=== PATIENT | female | born 1995 | race African-American/Black ===

== ENCOUNTER 2024-06-18 21:03 | Emergency (ER) | payer OTHER ==
[~2024-06-18] VITALS: Ht 172.7 cm; Wt 68.0 kg
[2024-06-18 21:48] VITALS: O2SAT 100
[2024-06-18] MEDS ORDERED: NITR-87 MT (22:54)
[2024-06-18] MEDS ORDERED: PHEN-910 MT (22:54)
[2024-06-18 22:57] LABS: CLARITY URINE CLOUDY (CLEAR); COLOR URINE YELLOW (YELLOW); GLUCOSE URINE NEGATIVE (NEGATIVE); KETONES URINE NEGATIVE (NEGATIVE); LEUKOCYTE ESTERASE URINE TRACE (NEGATIVE); NITRITE URINE NEGATIVE (NEGATIVE); OCCULT BLOOD URINE NEGATIVE (NEGATIVE); PH URINE 6.5 (4.5-8.0); PROTEIN URINE NEGATIVE (NEGATIVE); SPECIFIC GRAVITY URINE 1.023 (1.005-1.030)
[2024-06-18 23:06] VITALS: BP 118/61; PULSE 62; RESP 16; TEMP 98.1
[2024-06-18 23:17] LABS: BACTERIA URINE 4+; RBC URINE 0-2 /hpf (0-2); SQUAMOUS EPITHELIAL CELL URINE FEW /lpf (RARE/1+); WBC URINE 0-2 /hpf (0-2)
== END 2024-06-18 23:24 | disposition home or self-care (01) ==
LOC: ER 21:03
DX: N39.0 Urinary tract infection, site not specified (principal); R30.0 Dysuria
CPT/HCPCS: 81003; 81025; 99283

== ENCOUNTER 2024-10-09 11:45 | Emergency (ER) | payer OTHER ==
[~2024-10-09] VITALS: Ht 172.7 cm; Wt 66.7 kg
[~2024-10-09 11:45] MED LIST: NITR-87 MT; PHEN-910 MT
[2024-10-09 11:51] VITALS: O2SAT 100
[2024-10-09 11:53] VITALS: BP 109/57; PULSE 76; RESP 16; TEMP 98.3; O2SAT 99
== END 2024-10-09 16:37 | disposition home or self-care (01) ==
LOC: ER 11:45
DX: J02.8 Acute pharyngitis due to other specified organisms (principal); B97.89 Other viral agents as the cause of diseases classified elsewhere
CPT/HCPCS: 99281

== ENCOUNTER 2024-11-26 16:39 | Emergency (ER) | payer OTHER ==
[~2024-11-26] VITALS: Ht 170.2 cm; Wt 63.0 kg
[2024-11-26 16:49] VITALS: PULSE 85; O2SAT 99
[2024-11-26 16:50] VITALS: BP 150/100; RESP 16; TEMP 98.3; O2SAT 100
== END 2024-11-26 21:14 | disposition home or self-care (01) ==
LOC: ER 16:39
DX: R22.0 Localized swelling, mass and lump, head (principal)
CPT/HCPCS: 99281; A4663